=== PATIENT | male | born 1990 | race Caucasian/White ===

== ENCOUNTER 2017-12-08 07:36 | Emergency (ER) | payer OTHER ==
[~2017-12-08] VITALS: Ht 182.9 cm; Wt 127.0 kg
[2017-12-08 07:38] VITALS: BP 147/64; PULSE 90; RESP 16; TEMP 98; O2SAT 98
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
[2017-12-08 09:30] VITALS: BP 130/70
== END 2017-12-08 09:31 | disposition home or self-care (01) ==
LOC: NEPE 07:36
DX: M54.5 Low back pain (principal)
CPT/HCPCS: 99282